=== PATIENT | male | born 1950 | race Caucasian/White ===

== ENCOUNTER 2020-07-08 06:53 | Day surgery (SDC) | payer BC, SELFPAY ==
[2020-07-03 10:31] VITALS: BMI 33.7
--- NOTE | 2020-07-03 15:40 | P.CONAN_ITS ---
Documented by User: Lesia Marina 07/03/20 15:41 HPI - Anesthesia Eval Consult details Narrative: 69yo M for Colonoscopy Congenital deafness [facility] Past Medical History Medical History Deafness congenital Elevated cholesterol Essential tremor Gout Surgical History Surgical History H/O colonoscopy Hx of hand surgery Hx of right knee surgery Social History Social History Smoking Status: Former smoker Smoking Quit Date: 1979 Use of substances other than those prescribed or required for medical reasons: No Advance Directives Information Provided: No Recently lost weight without trying: No Meds Allergies Allergy/AdvReac Type Severity Reaction Status Date / Time No Known Allergies Allergy Unverified 06/05/20 19:25 [No Known Allergies*] Home Medications Medication Instructions Recorded Confirmed Type allopurinol 1 tab PO DAILY 07/03/20 07/03/20 History atorvastatin 1 tab PO DAILY 07/03/20 07/03/20 History Exam Exam Date and Time: July 03, 2020 1540 Height,Weight and Vital Signs: Height 5 ft 10 in Weight 106.594 kg Assessment and Plan Assessment Anesthesia Assessment: Chart Reviewed Documented by User: Pepe Lopez 07/08/20 08:45 [facility] Past Medical History Medical History Deafness congenital Elevated cholesterol Essential tremor Gout Surgical History Surgical History H/O colonoscopy Hx of hand surgery Hx of right knee surgery Social History Social History Smoking Status: Former smoker Smoking Quit Date: 1979 Use of substances other than those prescribed or required for medical reasons: No Advance Directives Information Provided: No Recently lost weight without trying: No Meds Allergies Allergy/AdvReac Type Severity Reaction Status Date / Time No Known Allergies Allergy Unverified 06/05/20 19:25 [No Known Allergies*] Home Medications Medication Instructions Recorded Confirmed Type allopurinol 1 tab PO DAILY 07/03/20 07/03/20 History atorvastatin 1 tab PO DAILY 07/03/20 07/03/20 History Exam Airway Mallampati Class: II TM Dist: >3cm Neck ROM: Full Denture: Upper and Lower Heart: [id number] Lungs: cta b/l Assessment and Plan Assessment Anesthesia Assessment: Anesthesia Plan Discussed, PAT Visit and Chart Reviewed Final Anesthetic Review NPO: Yes ASA Class: II Final Preanesthetic Review: No Changes in Pt Med Stat, Meds/Allgs Chart Reviewed, Consent Obtained/Reviewed and Anes Risks/Benef Reviewed Patient Risk: Low Procedure Risk: Low Assessment/Block/Sedation in SS: Assess/Block/Sedation-SS Anesthetic Plan Anesthetic Plan: MAC: Disposition: Standard PACU
[2020-07-08 08:05] VITALS: BP 159/93; PULSE 68; RESP 16; TEMP 37.1; O2SAT 95
[2020-07-08] MEDS: Lactated Ringers 1,000 ML 100 ML IVCONT (08:24)
--- NOTE | 2020-07-08 08:34 | MHC.SHP ---
Pre-Procedural Eval Section B Chief Complaint: screening Details of Present Illness: screening, hx of polyps Relevant Family History (Specify if Yes): No Relevant Social History: None Present Medications: see Short Stay Collaborative assessment Medical History: Significant History (see H&P no changes) History of Previous Operations: No relevant previous surgery Allergies: Allergies Allergy/AdvReac Type Severity Reaction Status Date / Time No Known Allergies Allergy Unverified 06/05/20 19:25 [No Known Allergies*] Review of Systems Sugical H&P ROS: Negative: Constitution, Cardiovascular, Respiratory, Neurological, Psychiatric, Hem-Onc, Allergic/Immunologic, Gastrointestinal, Genitourinary, Musculoskeletal, Integumentary, Endocrine and Eyes/Ears/Nose/Throat Exam Surgical H&P Exam: Normal: HEENT, Normal: Heart, Normal: Lungs, Normal: Extremities, Normal: Abdomen, Normal: Skin and Normal: Neurological Plan Diagnosis/Plan: Unchanged Patient has been examined and remains a candidate for the planned procedure
[2020-07-08 09:35] VITALS: BP 116/74; PULSE 66; RESP 16; TEMP 37; O2SAT 95
--- NOTE | 2020-07-08 09:37 | PM.OP ---
Brief Operative Note Date of procedure: 07/08/20 Pre-op diagnosis: screening Post-op diagnosis: other (colon polyps) Procedure: colonoscopy Surgeon: Georges Herrera Anesthesia: MAC Estimated blood loss (mL): 5 Pathology: other (polyps x3 cecum, 40,20cm) Condition: stable Disposition: PACU
[2020-07-08 09:45] VITALS: BP 142/85; PULSE 61; RESP 18; O2SAT 94
--- NOTE | 2020-07-08 09:45 | OP_ITS ---
SURGEON: Georges Herrera MD INDICATIONS: Colon cancer screening and prior history of adenomatous colon polyps. PREOPERATIVE DIAGNOSIS: POSTOPERATIVE DIAGNOSIS: PROCEDURE PERFORMED: Colonoscopy to the terminal ileum with biopsy and snare polypectomy. ESTIMATED BLOOD LOSS: COMPLICATIONS: ANESTHESIA: ASSISTANTS: SPECIMENS: MEDICATIONS: Monitored anesthesia care. DESCRIPTION OF PROCEDURE: History and physical performed. The risks and benefits of the procedure were explained to the patient. Informed consent was obtained. The patient was placed in the left lateral decubitus position. A digital rectal exam was performed and was found to be normal. The Olympus pediatric video colonoscope was introduced into the rectum and advanced to the cecum without difficulty. The cecum was identified by transillumination, palpation, and identification of ileocecal valve. Examination was performed and the scope was removed. He tolerated the procedure well and was taken to recovery area in stable condition. FINDINGS: The terminal ileum was normal. The visualized colonic mucosa was normal. The quality of the prep was good. Multiple polyps were identified, 2 removed with biopsy forceps in the cecum and at 40 cm, these were less than 10 mm; an 8 mm polyp at 20 cm was removed with a snare and recovered via suction. Retroflexed examination was normal. IMPRESSION: Colon polyps. RECOMMENDATION: Follow up the biopsy results. MD SUJATHA Borrego/SYLVAINL / [id number]
== END 2020-07-08 10:18 | disposition home or self-care (01) ==
PROVIDERS: PCP Internal Medicine; Visit Provider Internal Medicine Gastroenterology
PROC: 0DJD8ZZ Inspection of Lower Intestinal Tract, Via Natural or Artificial Opening Endoscopic (ICD-10-PCS; CPT 45378; principal; 2020-07-08 08:30)
DX: Z12.11 Encounter for screening for malignant neoplasm of colon (principal); Z86.010 Personal history of colon polyps; D12.0 Benign neoplasm of cecum; D12.5 Benign neoplasm of sigmoid colon; K63.5 Polyp of colon
CPT/HCPCS: 45385; 45380; 88305

== ENCOUNTER 2020-12-24 21:37 | Emergency (ER) | payer BC, SELFPAY ==
[2020-12-24 22:29] VITALS: BP 138/78; PULSE 66; RESP 16; TEMP 36.7; O2SAT 98; BMI 33.0
--- NOTE | 2020-12-24 23:25 | ED.WOUNDLAC ---
HPI - Wound/Laceration General Chief Complaint: Wound/Laceration Stated Complaint: Finger injury at work Time Seen by Provider: 12/24/20 23:25 Source: patient Mode of arrival: ambulatory History of Present Illness HPI narrative: This is a 70-year-old male who is deaf and presents as an injury at work after catching the right middle finger on a metal object (he works as a dairy farmworker) resulting in a laceration to the pad of the right middle finger. Related Data Home Medications Medication Instructions Recorded Confirmed allopurinol 1 tab PO DAILY 07/03/20 07/03/20 atorvastatin 1 tab PO DAILY 07/03/20 07/03/20 Allergies Allergy/AdvReac Type Severity Reaction Status Date / Time No Known Allergies Allergy Unverified 06/05/20 19:25 [No Known Allergies*] Review of Systems Review of Systems: Pertinent positives and negatives as stated in HPI 10 point review of systems otherwise negative. PMFSH Past Medical History Source: nursing notes reviewed Medical History Deafness congenital Elevated cholesterol Essential tremor Gout Surgical History H/O colonoscopy Hx of hand surgery Hx of right knee surgery Social History Social History Alcohol intake: never Smoking Status: Former smoker Smoked in Last 30 Days: No Use of substances other than those prescribed or required for medical reasons: No Any prior treatment program specific to substance use: No Advance Directives: No Advance Directives Information Provided: Yes Physical Exam Vital Signs: Vital Signs: Last Vital Signs Temp 98.0 F 12/24/20 22:29 Pulse 66 12/24/20 22:29 Resp 16 12/24/20 22:29 BP 138/78 12/24/20 22:29 Pulse Ox 98 12/24/20 22:29 Body Mass Index 33.0 VITAL SIGNS: Reviewed. GENERAL: Well developed, well nourished, in no acute distress. HEAD: Normocephalic/atraumatic OROPHARYNX: no oral lesions noted, posterior pharynx clear NECK: Supple, no adenopathy LUNGS: Normal breath sounds. SpO2<98> CARDIOVASCULAR: Regular rate and rhythm without noted murmurs ABDOMEN: Soft, non-tender, non-distended with bowel sounds. RIGHT MIDDLE FINGER: There is a 2.5 cm laceration in a V-shape to the pad of the right middle finger NEUROLOGIC: Alert and oriented x 4. Course Course Course Narrative: 70-year-old male with laceration to the right middle finger, tetanus vaccine within the past 3 years, and laceration was repaired without complications. All communication was completed through written form as there were difficulties using [employer] asl interpreter for ASL. Patient was then discharged in stable condition with recommendations for suture removal in 5 days. Procedures Laceration Laceration 1: Site: hand Side (If applicable): right Size (cm): 2.5 Description: irregular and clean Depth: simple, single layer Local Anesthetic: lidocaine 2% Amount of anesthesia used (mL): 5 Pre-repair: wound explored, irrigated extensively and deep structures intact Skin layer closed with: nylon Size (cm): 4-0 Number of sutures: 4 Technique: horizontal mattress Discharge Plan Discharge Clinical Impression: Laceration Patient Disposition: Home, Self-Care Instructions: Finger Laceration (ED) Additional Instructions: 1. [id number] Aleve as directed on the outside packaging for any pain and discomfort. In addition, keeping finger elevated when possible will also help with pain control. 2. Resume all home medications as prescribed. 3. May remove dressing in 24 hours and gently cleanse with soap and water, do not soak the finger in water, blot dry, apply antibiotic ointment with overlying Band-Aid. 4. Please follow-up with your primary care provider for removal of sutures (4) in 5 days, if this is not possible you may return to this emergency department for removal. 5. Do not hesitate to return to the emergency department should you develop any fevers, chills, swelling, purulence drainage. Prescriptions: No Action atorvastatin 20 mg tablet 1 tab PO DAILY RF: 0 allopurinol 300 mg tablet 1 tab PO DAILY RF: 0 Referrals: Kailash Gastelum MD [Primary Care Provider] - 5 days (Suture removal) Stand Alone Forms: Work/School Release Interventions: ED Discharge Assessment Last Done: 12/25/20 01:14 Discharge Date/Time: 12/25/20 00:50
[2020-12-25] MEDS: Lidocaine HCl 2 % MPF 5 ML VIAL INFILTRATI (00:27)
--- NOTE | 2020-12-25 01:17 | PC.NURSE ---
USED [employer] FOR [employer]ANGUAGE TO INTERPRET FOR PT.
== END 2020-12-25 00:50 | disposition home or self-care (01) ==
PROVIDERS: Emergency Provider Student in an Organized Health Care Education/Training Program; PCP Internal Medicine
DX: S61.212A Laceration without foreign body of right middle finger without damage to nail, initial encounter (principal); M79.644 Pain in right finger(s); W26.9XXA Contact with unspecified sharp object(s), initial encounter; Y93.9 Activity, unspecified; Y92.9 Unspecified place or not applicable; Y99.0 Civilian activity done for income or pay; Z79.899 Other long term (current) drug therapy
CPT/HCPCS: 99283; 99284

== ENCOUNTER 2021-04-21 11:07 | Emergency (ER) | payer BC, MEDICARE, SELFPAY ==
--- NOTE | ~2021-04-21 | CT_ITS ---
EXAMINATION: CT HEAD WITHOUT CONTRAST CLINICAL INFORMATION: Double vision, headache COMPARISON: None TECHNIQUE: Contiguous axial imaging was performed from the skull base to vertex without intravenous administration of contrast. This CT examination was performed using dose optimization techniques as appropriate, variously including the following: *Automated exposure control *Adjustment of mA and/or kV according to patient size (this includes techniques or standardized protocols for targeted exams where dose is matched to indication/reason for exam; i.e. extremities or head) *Use of iterative reconstruction technique DLP: 755 mGy-cm FINDINGS: There is no evidence of acute intracranial hemorrhage or territorial infarction. No abnormal mass effect or midline shift is seen. Zelaya to white matter differentiation is well preserved. No extra-axial fluid collections are identified. The ventricles are normal in size. There is no abnormal attenuation within the brain parenchyma. There is mild atherosclerotic dilation involving the left internal carotid artery and left basilar artery. The osseous structures and soft tissues are normal. The mastoid air cells and visualized portions of the paranasal sinuses are well aerated. CT/CT head/brain wo con IMPRESSION: No acute intracranial process seen.
[2021-04-21 11:12] VITALS: BP 174/75; PULSE 66; RESP 18
[2021-04-21 11:36] VITALS: BP 163/82; PULSE 64; RESP 16; TEMP 36.8; O2SAT 96; BMI 63.2
[2021-04-21 12:50] VITALS: BP 156/81; PULSE 56; RESP 18; O2SAT 95
[2021-04-21 12:58] LABS: MANUAL DIFF FLAG NO
[2021-04-21 13:02] LABS: Basophils Absolute Auto 0.1 X10*3/uL (0.0-0.2); Basophils Percent Auto 0.9 % (0-2); Eosinophils Absolute Auto 0.1 X10*3/uL (0.0-0.4); Hemoglobin 14.4 g/dl (14.0-18.0); Imm Gran Abs Auto 0.02 X10*3/uL (0.00-0.03); Imm Gran Pct Auto 0.4 % (0.0-0.4); Lymphocytes Absolute Auto 1.6 X10*3/uL (1.2-4.9); Mean Corpuscular HGB Conc 33.5 g/dl (31.0-36.0); Mean Corpuscular Hemoglobin 30.4 pg (27.0-33.0); Mean Corpuscular Volume 90.9 fL (80-98); Monocytes Absolute Auto 0.7 X10*3/uL (0.1-1.2); Monocytes Percent Auto 13.2 % (2-11); Neutrophils Absolute Auto 2.9 X10*3/uL (2.0-8.3); Neutrophils Percent Auto 53.5 % (45-73); Platelet Count 141 X10*3/uL (160-400); Red Blood Count 4.73 X10*6/uL (4.60-5.80); Red Cell Distribution Width 12.4 % (11.0-16.0); White Blood Count 5.4 X10*3/uL (4.8-10.8)
[2021-04-21 13:07] LABS: INTERNATIONAL NORM RATIO 1.1 (0.9-1.1); Prothrombin Time 12.8 SEC (9.9-13.0)
[2021-04-21 13:10] LABS: Partial Thromboplastin Time 34.5 SEC (24.1-38.0)
[2021-04-21 13:35] LABS: Alanine Aminotransferase 26 U/L (0-40); Albumin Level 4.6 g/dL (3.5-5.0); Alkaline Phosphatase 80 U/L (39-117); Anion Gap 13 (12-20); Aspartate Amino Transferase 23 U/L (5-37); Bilirubin Direct 0.2 mg/dL (0.0-0.5); Bilirubin Total 0.5 mg/dL (0.0-1.0); Blood Urea Nitrogen 12 mg/dL (9-16); Calcium 9.3 mg/dL (8.4-10.2); Carbon Dioxide 23 mmol/L (22-29); Chloride 107 mmol/L (96-108); Creatinine Clr Calc Pharmacy 126.6; Estimated Glomerular Filt Rate > 60; Glucose Random 103 mg/dL (60-115); Potassium 3.5 mmol/L (3.3-5.1); Sodium 139 mmol/L (135-145); Total Protein 7.4 g/dL (6.5-8.0)
--- NOTE | 2021-04-21 14:18 | ED_ITS ---
HPI - Neuro Symptoms/Deficit General Chief Complaint: Neuro Symptoms/Deficit Stated Complaint: double vision Time Seen by Provider: 04/21/21 11:40 Source: patient Mode of arrival: ambulatory History of Present Illness HPI Narrative: 70-year-old male with a past medical history of congenital deafness, hyperlipidemia, essential tremor, gout, presenting to the ED complaining of bilateral double vision since Tuesday s/p scoring ba le thomas. Admits right eye mildly sore, and with off-balance gait secondary to double vision. 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 Reports mild associated headache and nausea. Denies lightheadedness/dizziness, fever, chills, visual loss, vomiting, CP/SOB, head trauma. Does not take anticoagulation Onset (ago): day(s) Related Data Home Medications Medication Instructions Recorded Confirmed allopurinol 300 mg tablet 1 tab PO DAILY 07/03/20 07/03/20 atorvastatin 20 mg tablet 1 tab PO DAILY 07/03/20 07/03/20 Allergies Allergy/AdvReac Type Severity Reaction Status Date / Time No Known Allergies Allergy Unverified 06/05/20 19:25 [No Known Allergies*] Review of Systems Review of Systems: Constitutional: No Fever, No Chills, No Fatigue, No Malaise ENT/Mouth: No Hearing loss, No Ear Pain, No Nasal Congestion, No sore throat, No Rhinorrhea, No Swallowing Difficulty Eyes: + Eye Pain, No Swelling, No Redness, No Foreign Body, No Discharge, + Vision Changes Cardiovascular: No Chest Pain, No SOB Respiratory: No Cough, No Dyspnea Gastrointestinal: + Nausea, No Vomiting, No Abdominal pain Musculoskeletal: No joint pain, No Myalgias, No Joint Swelling Skin: No Skin Lesions, No rash Neuro: No Weakness, No Numbness, No Paresthesias, No Loss of Consciousness, No Dizziness, +Headache Yes all other systems are reviewed and are negative [facility] Past Medical History Attestation statement: The following information was validated with the patient. Medical History Deafness congenital Elevated cholesterol Essential tremor Gout Surgical History H/O colonoscopy Hx of hand surgery Hx of right knee surgery Social History Social History Alcohol intake: never Smoked in Last 30 Days: No Use of substances other than those prescribed or required for medical reasons: No Advance Directives: No Advance Directives Information Provided: No Physical Exam Vital Signs: Vital Signs: Last Vital Signs Temp 98.2 F 04/21/21 11:36 Pulse 56 04/21/21 12:50 Resp 18 04/21/21 12:50 BP 156/81 H 04/21/21 12:50 Pulse Ox 95 04/21/21 12:50 Body Mass Index 63.2 Const: General: cooperative and healthy appearing Orientati on/consciousness: patient oriented x3 Limitations: no limitations HENMT: Head: Yes normal to inspection and Yes atraumatic Ears: hearing grossly normal bilaterally General nose exam: Normal external nose present Face and sinus: Yes normal facial exam Mouth: Normal oral and palatal mucosa present Eyes: Other: Visual acuity 20/20 in the left eye 20/25 in the right eye Periorbital: periorbital findings normal Eyelids: Yes eyelids normal Conjunctivae: conjunctivae normal Pupils: Equal, round and reactive pupils present EOM: movement deficit unable to deviate laterally (right eye) and No Nystagmus present Direct Ophthalmoscopy: normal light reflex and no photophobia Neck: Neck: Yes normal visual inspection and Yes no meningeal signs Resp: Effort & Inspection: normal respiratory effort, not labored and no respiratory distress Cardio: Rate: regular rate GI: Inspection: Yes normal to inspection Skin: Rashes: no rashes Wounds: no wounds Neuro: Other: Gait steady but unbalanced General: patient oriented x3, tone normal, moves all extremities, no meningeal signs, no focal motor deficits and normal sensation to monofilament Cranial nerves: Yes Equal, round and reactive pupils present, Yes Midline tongue present, Yes Individual cranial nerve findings present and No Nystagmus present Gait exam (Neuro): Normal gait present Motor exam (neuro): 5/5 motor strength present throughout, Pronator motor function not present and no tremor noted Romberg Test: Negative Extrem: General: Yes normal to inspection Course Course Course Narrative: CT head/brain wo con IMPRESSION: No acute intracranial process seen. -labs unremarkable -visual acuity 20/25 in the right eye, 20/20 in the left eye >> results discussed with including needed follow-up with ophthalmology. Eye patch placed on right eye. MDM - Neuro Symptoms/Deficit MDM Narrative Medical decision making narrative: 70-year-old male with a past medical history of congenital deafness, hyperlipidemia, essential tremor, gout, presenting to the ED complaining of bilateral double vision since Tuesday afternoon s/p scoring baseball game. On exam vital signs stable, NAD/nontoxic, physical exam as above consistent with cranial nerve 6 palsy, right eye with lateral EOM inhibited. Case discussed with Dr. Garcia who also evaluated patient and is in agreement with plan. Lower concern for CVA/TIA/Kennedy's palsy. Rule out metabolic abnormalities Will obtain EKG, labs, head CT and have patient follow-up with ophthalmology Medical Records Attestation: I reviewed the patient's medical records. Lab Data Attestation: I reviewed the patient's lab results. Result diagrams: 04/21/21 12:53 04/21/21 12:53 Labs: Lab Results 04/21/21 04/21/21 04/21/21 Range/Units 12:53 12:53 12:53 WBC 5.4 (4.8-10.8) X10*3/uL RBC 4.73 (4.60-5.80) X10*6/uL Hgb 14.4 (14.0-18.0) g/dl Hct 43.0 (42-52) % MCV 90.9 (80-98) fL MCH 30.4 (27.0-33.0) pg MCHC 33.5 (31.0-36.0) g/dl RDW 12.4 (11.0-16.0) % Plt Count 141 L (160-400) X10*3/uL MPV 9.0 L (9.4-12.4) fL Immature Gran % (Auto) 0.4 (0.0-0.4) % Neut % (Auto) 53.5 (45-73) % Lymph % (Auto) 30.0 (20-40) % [place] % (Auto) 13.2 H (2-11) % Eos % (Auto) 2.0 (0-4) % Baso % (Auto) 0.9 (0-2) % Lymph # (Auto) 1.6 (1.2-4.9) X10*3/uL [place] # (Auto) 0.7 (0.1-1.2) X10*3/uL Eos # (Auto) 0.1 (0.0-0.4) X10*3/uL Baso # (Auto) 0.1 (0.0-0.2) X10*3/uL Abs Immat Gran (auto) 0.02 (0.00-0.03) X10*3/uL Absolute Neuts (auto) 2.9 (2.0-8.3) X10*3/uL Absolute Nucleated RBC 0.000 (0.0-0.012) X10*3/uL Nucleated RBC % (auto) 0.0 (0.0-0.2) /100WBC PT 12.8 (9.9-13.0) SEC INR 1.1 (0.9-1.1) APTT 34.5 (24.1-38.0) SEC Sodium 139 (135-145) mmol/L Potassium 3.5 (3.3-5.1) mmol/L Chloride 107 (96-108) mmol/L Carbon Dioxide 23 (22-29) mmol/L Anion Gap 13 (12-20) BUN 12 (9-16) mg/dL Creatinine 0.95 (0.5-1.4) mg/dL Estim Creat Clear Calc 126.6 Estimated GFR > 60 Random Glucose 103 (60-115) mg/dL Calcium 9.3 (8.4-10.2) mg/dL Magnesium 2.0 (1.6-2.6) mg/dL Total Bilirubin 0.5 (0.0-1.0) mg/dL Direct Bilirubin 0.2 (0.0-0.5) mg/dL AST 23 (5-37) U/L ALT 26 (0-40) U/L Alkaline Phosphatase 80 (39-117) U/L Total Protein 7.4 (6.5-8.0) g/dL Albumin 4.6 (3.5-5.0) g/dL Discharge Plan Discharge Clinical Impression: Sixth cranial nerve palsy Qualifiers: Laterality: right Qualified Code(s): H49.21 - Sixth [abducent] nerve palsy, right eye Patient Disposition: Home, Self-Care Additional Instructions: You have 6th cranial nerve palsy This is usually self-limiting, and will resolve on its own, this may take up to 4-6 weeks However is very important he follow up with an rehab liaison as soon as possible Wear eye patched so double vision improves If you develop constant worsening headache, constant worsening visual changes, visual loss, nausea/vomiting, weakness, numbness/tingling please return to the ED immediately Prescriptions: No Action atorvastatin 20 mg tablet 1 tab PO DAILY RF: 0 allopurinol 300 mg tablet 1 tab PO DAILY RF: 0 Referrals: Mode Parham [Physician] - 2 days
[2021-04-21 14:48] LABS: Erythrocyte Sedimentation Rate 7 MM/HR (0-15)
== END 2021-04-21 15:02 | disposition home or self-care (01) ==
PROVIDERS: Physician Assistant; Emergency Provider Emergency Medicine; PCP Internal Medicine
DX: H49.21 Sixth [abducent] nerve palsy, right eye (principal); Z79.899 Other long term (current) drug therapy
CPT/HCPCS: 36415; 70450; 80048; 80076; 83735; 85025; 85610; 85652; 85730; 99284

== ENCOUNTER 2021-07-01 10:26 | Emergency (ER) | payer BC, MEDICARE, SELFPAY ==
[2021-07-01 10:32] VITALS: BP 183/96; PULSE 73; RESP 18; TEMP 37.3; O2SAT 94; BMI 33.0
[2021-07-01 10:42] VITALS: BP 173/92; PULSE 78; RESP 13; TEMP 36.6; O2SAT 96
--- NOTE | 2021-07-01 11:26 | ED_ITS ---
HPI - General Adult General Chief complaint: General Medical Stated complaint: facial droop Time Seen by Provider: 07/01/21 10:49 Source: patient Mode of arrival: ambulatory Limitations: no limitations History of Present Illness HPI narrative: Patient comes to emergency room complaining of left-sided facial droop and inability to close his left eye. Patient states all of his symptoms started yesterday night. Patient states that when he was eating supper, he noticed that he was unable to fully close his mouth, fluid was running out of the left side of his mouth. Then patient also noticed that he could not move his eyebrow or close his eye completely on the left side. Patient denies losing strength in upper lower extremities. Patient states that approximately 2 months ago, he was in a post with 6 nerve cranial nerve palsy on the right side of his face. Patient states that approximately 1 month ago he was diagnosed with COVID-19. Patient has no other complaints. Of note, patient is deaf mute, inte [employer] services online were used for interpretation. Related Data Home Medications Medication Instructions Recorded Confirmed allopurinol 300 mg tablet 1 tab PO DAILY 07/03/20 07/03/20 atorvastatin 20 mg tablet 1 tab PO DAILY 07/03/20 07/03/20 Previous Rx's Medication Instructions Recorded acyclovir 800 mg tablet 800 mg PO TID 7 Days #21 tab 07/01/21 prednisone 10 mg tablet 10 mg PO DAILY #34 tab 07/01/21 Allergies Allergy/AdvReac Type Severity Reaction Status Date / Time No Known Allergies Allergy Unverified 06/05/20 19:25 [No Known Allergies*] Review of Systems Review of Systems: Constitutional : No Weight loss, No Fever, No Chills, No Night Sweats, No Fatigue, No Malaise ENT/Mouth : No Hearing loss, No Ear Pain, No Nasal Congestion, No Sinus Pain, No Hoarseness, No sore throat, No Rhinorrhea, No Swallowing Difficulty Eyes: No Eye Pain, No Swelling, No Redness, No Foreign Body, No Discharge, No Vision Changes Cardiovascular : No Chest Pain, No SOB, No Dyspnea on Exertion, No Orthopnea, No Edema, No Palpitations Respiratory : No Cough, No Sputum, No Wheezing, No Smoke Exposure, No Dyspnea Gastrointestinal : No Nausea, No Vomiting, No Diarrhea, No Constipation, No abdominal Pain, No Hematochezia, No Melena Genitourinary : no irregular bleeding, No Dysuria, No Urinary Frequency, No Hematuria, No Urinary Incontinence, No Urgency, No Flank Pain, No Urinary Flow Changes, No Hesitancy Musculoskeletal : No joint pain, No Myalgias, No Joint Swelling Skin : No Skin Lesions, No rash Neuro : No Weakness, No Numbness, No Paresthesias, No Loss of Consciousness, No Dizziness, No Headache, complaining of inability to fully close his left eye, cannot move the left eyebrow, left-sided mouth drooping Psych : No Anxiety/Panic, No Depression, No SI/HI/AH/VH, No Social Issues, Heme/Lymph: No Bruising, No Bleeding,No Lymphadenopathy Endocrine : No Polyuria, No Polydipsia, No Temperature Intolerance PMFSH Past Medical History Medical History Deafness congenital Elevated cholesterol Essential tremor Gout Surgical History H/O colonoscopy Hx of hand surgery Hx of right knee surgery Social History Social History Alcohol intake: never Smoked in Last 30 Days: No Use of substances other than those prescribed or required for medical reasons: No Advance Directives: No Advance Directives Information Provided: No Physical Exam Vital Signs: Vital Signs: Last Vital Signs Temp 97.8 F 07/01/21 10:42 Pulse 78 07/01/21 10:42 Resp 13 07/01/21 10:42 BP 173/92 H 07/01/21 10:42 Pulse Ox 96 07/01/21 10:42 Body Mass Index 33.0 Const: Other: Appearance: Alert. Oriented X3. No acute distress. Eyes: Pupils equal, round and reactive to light. ENT: Pharynx normal. Neck: Normal inspection. Neck supple. No lymph nodes noted. No crepitus CVS: Normal heart rate and rhythm. Pulses normal. Normal S1 and S2 Respiratory: No respiratory distress. Breath sounds normal. No Wheezing. No rales Abdomen: Soft and nontender. No rigidity. No distention. good BS x4 Skin: Skin warm and dry. Normal skin color. Normal skin turgor. Extremities: No lower extremity edema. No lower extremity edema. No Laceratio ns. No Rash Neuro: Oriented X 3. No motor deficit. No sensory deficit. Moving all extermities. Unable to assess speech, patient is deaf mute. 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 Patient was given the 1st dose of antiviral and prednisone in the emergency room. Patient instructed to follow-up with his primary care physician. Discharge Plan Discharge Clinical Impression: Facial paralysis/[place] palsy Patient Disposition: Home, Self-Care Instructions: Kennedy Palsy (ED) Additional Instructions: Please follow-up with your primary care physician tomorrow. If you have any worsening or new symptoms, please return to the emergency room or call 911 Prescriptions: New acyclovir 800 mg tablet 800 mg PO TID 7 Days Qty: 21 RF: 0 prednisone 10 mg tablet 10 mg PO DAILY Qty: 34 RF: 0 No Action atorvastatin 20 mg tablet 1 tab PO DAILY RF: 0 allopurinol 300 mg tablet 1 tab PO DAILY RF: 0
[2021-07-01] MEDS: Acyclovir 200 MG CAPSULE 800 MG PO (11:55)
[2021-07-01] MEDS: predniSONE 20 MG TABLET 60 MG PO (11:55)
== END 2021-07-01 12:00 | disposition home or self-care (01) ==
PROVIDERS: Emergency Provider Emergency Medicine; PCP Internal Medicine
DX: G51.0 Bell's palsy (principal); H90.5 Unspecified sensorineural hearing loss
CPT/HCPCS: 99284

== ENCOUNTER 2023-08-16 12:26 | Emergency (ER) | payer BC, SELFPAY ==
--- NOTE | ~2023-08-16 | CT_ITS ---
EXAMINATION: CT HEAD WITHOUT CONTRAST CLINICAL INFORMATION: Right-sided head pain and numbness. COMPARISON: 04/21/2021 TECHNIQUE: Contiguous axial imaging was performed from the skull base to vertex without intravenous administration of contrast. This CT examination was performed using dose optimization techniques as appropriate, variously including the following: *Automated exposure control *Adjustment of mA and/or kV according to patient size (this includes techniques or standardized protocols for targeted exams where dose is matched to indication/reason for exam; i.e. extremities or head) *Use of iterative reconstruction technique DLP: 727 mGy-cm FINDINGS: The lateral, third and fourth ventricles are normally outlined. The cortical sulci and basal cisterns are normally outlined as well. There is no acute territorial defect, hemorrhage or midline shift. The extra-axial spaces are unremarkable. Calvarium: Intact. Maxillofacial sinuses and mastoids: Clear as visualized. CT/CT head/brain wo IV con IMPRESSION: No acute intracranial pathology.
[2023-08-16 13:04] VITALS: BP 162/87; PULSE 76; RESP 20; TEMP 36.5; O2SAT 95; BMI 36.2
--- NOTE | 2023-08-16 13:07 | ED_ITS ---
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 patient has difficulty in swallowing as he drooling from the right side able to partially close his eye Related Data Home Medications Medication Instructions Recorded Confirmed allopurinol 300 mg tablet 1 tab PO DAILY 07/03/20 07/03/20 atorvastatin 20 mg tablet 1 tab PO DAILY 07/03/20 07/03/20 Previous Rx's Medication Instructions Recorded acyclovir 800 mg tablet 800 mg PO TID 7 days #21 tabs 07/01/21 prednisone 10 mg tablet 10 mg PO DAILY #34 tabs 07/01/21 artificial tears(hypromellose) 0.5 1 drp ophthalmic-Right Q2-4H PRN 08/16/23 % eye drops (Tears Lubricant) dry eyes #15 mL prednisone 20 mg tablet 60 mg (3 x 20 mg) PO DAILY #18 tabs 08/16/23 valacyclovir 1 gram tablet 1,000 mg PO TID #20 tabs 08/16/23 (Valtrex) Allergies Allergy/AdvReac Type Severity Reaction Status Date / Time No Known Allergies Allergy Verified 08/16/23 13:06 [No Known Allergies*] Review of Systems 2 Review of Systems: Yes all other systems are reviewed and are negative PMFSH Past Medical History Medical History Gout Essential tremor Deafness congenital Elevated cholesterol Surgical History H/O colonoscopy Hx of hand surgery Hx of right knee surgery Social History Social History Alcohol intake: never Smoked in Last 30 Days: No Use of substances other than those prescribed or required for medical reasons: No Advance Directives: No Advance Directives Information Provided: No Physical Exam 2 Vital Signs: Vital Signs: Last Vital Signs Temp 98.2 F 08/16/23 21:55 Pulse 71 08/16/23 21:55 Resp 16 08/16/23 21:55 BP 160/90 H 08/16/23 21:55 Pulse Ox 95 08/16/23 21:55 O2 Del Method Room Air 08/16/23 21:55 BMI result Body Mass Index 36.2 Appearance: Alert. Oriented X3. No acute distress. Eyes: PERRLA, No Nystagmus ENT: Pharynx normal. Oral Mucosa moist Neck: Normal inspection. Neck supple. CVS: Normal heart rate and rhythm. Pulses normal. Respiratory: No respiratory distress. Equal air entry bilateral, Abdomen: Soft and nontender. Bowel sounds are present, no mass palpable, no CVA tenderness Skin: Skin warm and dry. Normal skin color. Normal skin turgor. Extremities: No lower extremity edema. No calf tenderness Neuro: Oriented X 3. No motor deficit. Decreased sensation to light touch and pinprick on R cheek.No cerebellar signs , right-sided lower motor neuron 7 nerve partial palsy Course Course Course Narrative: This is an RME: Additional HPI, ROS, PE not included below will be deferred to primary provider. 73-year-old male presents with right-sided headpain and numbness since the when he got his COVID and flu shot. 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 08/16/23 13:44 08/16/23 13:44 Labs: Lab Results 08/16/23 Range/Units 13:44 WBC 5.9 (4.8-10.8) X10*3/uL RBC 5.19 (4.60-5.80) X10*6/uL Hgb 15.7 (14.0-18.0) g/dl Hct 46.7 (42.0-52.0) % MCV 90.0 (80.0-98.0) fL MCH 30.3 (27.0-33.0) pg MCHC 33.6 (31.0-36.0) g/dl RDW 12.4 (11.0-16.0) % Plt Count 130 L (160-400) X10*3/uL MPV 8.8 L (9.4-12.4) fL Immature Gran % (Auto) 0.5 H (0.0-0.4) % Neut % (Auto) 54.9 (45-73) % Lymph % (Auto) 31.6 (20-40) % [place] % (Auto) 9.8 (2-11) % Eos % (Auto) 2.4 (0-4) % Baso % (Auto) 0.8 (0-2) % Lymph # (Auto) 1.9 (1.2-4.9) X10*3/uL [place] # (Auto) 0.6 (0.1-1.2) X10*3/uL Eos # (Auto) 0.1 (0.0-0.4) X10*3/uL Baso # (Auto) 0.1 (0.0-0.2) X10*3/uL Abs Immat Gran (auto) 0.03 (0.00-0.03) X10*3/uL Absolute Neuts (auto) 3.2 (2.0-8.3) x10*3/uL Absolute Nucleated RBC 0.000 (0.0-0.012) X10*3/uL Nucleated RBC % (auto) 0.0 (0.0-0.2) /100WBC ESR 4 (0-15) MM/HR PT 12.7 (11.1-13.3) SEC INR 1.0 (0.9-1.1) Sodium 139 (135-145) mmol/L Potassium 4.1 (3.3-5.1) mmol/L Chloride 106 (96-108) mmol/L Carbon Dioxide 26 (22-29) mmol/L Anion Gap 11 L (12-20) BUN 11 (9-16) mg/dL Creatinine 0.96 (0.5-1.4) mg/dL Estim Creat Clear Calc 86.8 Estimated GFR > 60 Random Glucose 106 (60-115) mg/dL Calcium 9.6 (8.4-10.2) mg/dL Total Bilirubin 0.9 (0.0-1.0) mg/dL AST 26 (5-37) U/L ALT 34 (0-40) U/L Alkaline Phosphatase 65 (39-117) U/L C-Reactive Protein 0.35 (< or = 0.50) mg/dL Total Protein 7.6 (6.5-8.0) g/dL Albumin 4.6 (3.5-5.0) g/dL Independent Interpretation I performed an independent interpretation of an: CT Scan Radiology Impression Discussion of test interpretation with radiology: I have reviewed the radiologist's reading. Discharge Plan Discharge Clinical Impression: Right-sided Kennedy's palsy Patient Disposition: Home, Self-Care Instructions: Kennedy Palsy (ED) Additional Instructions: You have right Kennedy's palsy Take medication as prescribed Care of eyes as advised, use the tape to close your right eye when asleep Tear drops to keep your right eye lubricated Prescriptions: New valacyclovir [Valtrex] 1 gram tablet 1,000 mg PO TID Qty: 20 0RF prednisone 20 mg tablet 60 mg PO DAILY Qty: 18 0RF Tears Lubricant Eye Drop 0.5 % drops 1 drp ophthalmic-Right Q2-4H PRN (Reason: dry eyes) Qty: 15 0RF No Action atorvastatin 20 mg tablet 1 tab PO DAILY allopurinol 300 mg tablet 1 tab PO DAILY acyclovir 800 mg tablet 800 mg PO TID 7 Days Qty: 21 0RF prednisone 10 mg tablet 10 mg PO DAILY Qty: 34 0RF Rx Instructions: Take 50 mg for 3 days (starting 07/02/2021), then take 40 mg for 2 days, then 30 mg for 2 days, then 20 mg for 2 days, then 10 mg for 1 day Referrals: Toya Bolivar MD [Physician] - 1 week Interventions: ED Discharge Assessment Last Done: 08/16/23 22:42 Discharge Date/Time: 08/16/23 22:42
[2023-08-16 13:49] LABS: MANUAL DIFF FLAG NO
[2023-08-16 13:52] LABS: Basophils Absolute Auto 0.1 X10*3/uL (0.0-0.2); Basophils Percent Auto 0.8 % (0-2); Eosinophils Absolute Auto 0.1 X10*3/uL (0.0-0.4); Eosinophils Percent Auto 2.4 % (0-4); Hematocrit 46.7 % (42.0-52.0); Hemoglobin 15.7 g/dl (14.0-18.0); Imm Gran Abs Auto 0.03 X10*3/uL (0.00-0.03); Imm Gran Pct Auto 0.5 % (0.0-0.4); Lymphocytes Absolute Auto 1.9 X10*3/uL (1.2-4.9); Lymphocytes Percent Auto 31.6 % (20-40); Mean Corpuscular HGB Conc 33.6 g/dl (31.0-36.0); Mean Corpuscular Hemoglobin 30.3 pg (27.0-33.0); Mean Platelet Volume 8.8 fL (9.4-12.4); Monocytes Absolute Auto 0.6 X10*3/uL (0.1-1.2); Monocytes Percent Auto 9.8 % (2-11); Neutrophils Absolute Auto 3.2 x10*3/uL (2.0-8.3); Neutrophils Percent Auto 54.9 % (45-73); Platelet Count 130 X10*3/uL (160-400); Red Blood Count 5.19 X10*6/uL (4.60-5.80); Red Cell Distribution Width 12.4 % (11.0-16.0); White Blood Count 5.9 X10*3/uL (4.8-10.8)
[2023-08-16 14:03] LABS: Prothrombin Time 12.7 SEC (11.1-13.3)
[2023-08-16 14:08] LABS: Alanine Aminotransferase 34 U/L (0-40); Albumin Level 4.6 g/dL (3.5-5.0); Alkaline Phosphatase 65 U/L (39-117); Anion Gap 11 (12-20); Aspartate Amino Transferase 26 U/L (5-37); Bilirubin Total 0.9 mg/dL (0.0-1.0); Blood Urea Nitrogen 11 mg/dL (9-16); Calcium 9.6 mg/dL (8.4-10.2); Carbon Dioxide 26 mmol/L (22-29); Chloride 106 mmol/L (96-108); Creatinine Clr Calc Pharmacy 86.8; Estimated Glomerular Filt Rate > 60; Glucose Random 106 mg/dL (60-115); Potassium 4.1 mmol/L (3.3-5.1); Sodium 139 mmol/L (135-145); Total Protein 7.6 g/dL (6.5-8.0)
[2023-08-16 18:06] VITALS: BP 190/104; PULSE 73; RESP 18; TEMP 36.9; O2SAT 95
--- NOTE | 2023-08-16 18:19 | PC.NURSE ---
2 years ago had bells palsy that affected his left side. had covid booster last tuesday and 2-3 days ago started with symptoms of sharp shooting pain and some numbness noted. history of gout and osteoarthritis.
[2023-08-16 21:55] VITALS: BP 160/90; PULSE 71; RESP 16; TEMP 36.8; O2SAT 95
[2023-08-16] MEDS: predniSONE 20 MG TABLET 60 MG PO (22:41)
[2023-08-16] MEDS: valACYclovir HCL 1,000 MG TABLET 1000 MG PO (22:41)
[2023-08-16 23:02] LABS: C Reactive Protein 0.35 mg/dL (< or = 0.50)
[2023-08-16 23:42] LABS: Erythrocyte Sedimentation Rate 4 MM/HR (0-15)
== END 2023-08-16 22:42 | disposition home or self-care (01) ==
PROVIDERS: Physician Assistant; Emergency Provider Internal Medicine; PCP Internal Medicine
DX: G51.0 Bell's palsy (principal); E78.5 Hyperlipidemia, unspecified; G25.0 Essential tremor; Z79.02 Long term (current) use of antithrombotics/antiplatelets; Z79.899 Other long term (current) drug therapy
CPT/HCPCS: 36415; 70450; 80053; 85025; 85610; 85652; 86140; 99284